=== PATIENT | female | born 2000 | race Two or more races ===

== ENCOUNTER 2022-10-20 08:24 | Inpatient (IN) | payer OTHER ==
[~2022-10-20] VITALS: Ht 152.4 cm; Wt 58.1 kg
[2022-10-20] MEDS ORDERED: PRENATAL TABLE1 EAC1 PO (08:35)
== END 2022-10-25 14:46 | disposition home or self-care (01) | DRG 788 ==
LOC: OBS/DEL 08:24 → LDR 12:53 → OB/GYN 12:53 → LDR 10-21 07:46 → OB/GYN 10-21 18:41
PROVIDERS: ADMIT Obstetrics & Gynecology; ATTEND Obstetrics & Gynecology
PROC: 4A1HXCZ Monitoring of Products of Conception, Cardiac Rate, External Approach (ICD-10-PCS; 2022-10-20)
PROC: 10D00Z1 Extraction of Products of Conception, Low, Open Approach (ICD-10-PCS; principal; 2022-10-21 03:00)
DX: O33.8 Maternal care for disproportion of other origin (principal); O14.04 Mild to moderate pre-eclampsia, complicating childbirth; Z3A.38 38 weeks gestation of pregnancy; Z37.0 Single live birth; Z20.822 Contact with and (suspected) exposure to COVID-19